=== PATIENT | male | born 1985 | race African-American/Black ===

== ENCOUNTER 2017-06-09 13:13 | Emergency (ER) | payer OTHER ==
[~2017-06-09] VITALS: Ht 208.3 cm; Wt 95.3 kg
[2017-06-09] MEDS ORDERED: METOCLOPRAMIDE HCL 10 MG/2 ML VIAL IV ONE (13:30)
[2017-06-09] MEDS ORDERED: IV NORMAL SALINE 1000 ML BAG IV ONE (13:30)
[2017-06-09] MEDS ORDERED: METOCLOPRAMIDE HCL 10 MG/2 ML VIAL ONE (13:33)
[2017-06-09] MEDS ORDERED: PROCHLORPERAZINE EDISYLATE 10 MG/2 ML VIAL IV ONE (14:30)
[2017-06-09] MEDS ORDERED: diphenhydrAMINE 50 MG/1 ML VIAL IV ONE (14:30)
[2017-06-09 14:36] LABS: BASOPHILS # (AUTO) 0.1 K/uL (0.0-8.0); BASOPHILS % (AUTO) 0.5 % (0.0-2.0); EOSINOPHILS % (AUTO) 0.1 % (0.0-7.0); HEMATOCRIT 46.3 % (36.7-47.1); HEMOGLOBIN 15.4 g/dL (12.5-16.3); LYMPHOCYTES # (AUTO) 1.1 K/uL (20.0-40.0); LYMPHOCYTES % (AUTO) 9.7 % (20.5-51.5); MEAN CORPUSCULAR HEMOGLOBIN 28.6 uug (23.8-33.4); MEAN CORPUSCULAR HGB CONC 33 g/dL (32.5-36.3); MEAN CORPUSCULAR VOLUME 85.8 fL (73.0-96.2); MONOCYTES # (AUTO) 0.5 K/uL (2.0-10.0); MONOCYTES % (AUTO) 4.1 % (0.0-11.0); NEUTROPHILS # (AUTO) 10.2 K/uL (1.8-8.9); NEUTROPHILS % (AUTO) 85.6 % (38.5-71.5); PLATELET COUNT (AUTO) 239 K/uL (152-348); RED BLOOD CELL COUNT(AUTO) 5.39 MIL/uL (4.06-5.63); WHITE BLOOD COUNT (AUTO) 11.9 K/uL (3.6-10.2)
[2017-06-09] MEDS ORDERED: diphenhydrAMINE 50 MG/1 ML VIAL ONE (14:42)
[2017-06-09] MEDS ORDERED: PROCHLORPERAZINE EDISYLATE 10 MG/2 ML VIAL ONE (14:42)
[2017-06-09 15:02] LABS: POTASSIUM 3.9 mmol/L (3.5-5.1)
[2017-06-09 15:07] LABS: ETHANOL < 3 MG/DL (0-0)
[2017-06-09 15:16] LABS: BILIRUBIN,DIRECT 0.1 mg/dL (0.0-0.2); BILIRUBIN,TOTAL 0.5 mg/dL (0.2-1.0); TOTAL PROTEIN, SERUM 8.1 g/dL (6.4-8.2)
--- NOTE | 2017-06-09 16:00 | NUR ---
PT DECIDED TO GO HOME. PT AXOX4. PT SAYS RATHER GO HOME AND REST AT HOME. PT GIRL FRIEND AT BEDSIDE AND SAYS FEELS SAFE TO TAKE THE PT HOME.
--- NOTE | 2017-06-09 16:38 | NUR ---
Patient discharged to home in stable conditon. Written and verbal after care instructions given. Patient AND THE GIRL FRIEND verbalize understanding of instructions.PT WALKS IN STEADY GAIT. PT SAYS FEELS BETTER, KSENIA NIETO N/V AT THIS TIME.
[2017-06-09 16:40] VITALS: BP 121/81
== END 2017-06-09 16:42 | disposition home or self-care (01) ==
LOC: ER 13:15
DX: R10.33 Periumbilical pain (principal); Z88.0 Allergy status to penicillin
CPT/HCPCS: 36415; 70030-TC; 71045; 83605; 83690; 85025; 85730; 87040; 93005; A4663; G0480; J0780; J1200; J2765; J7030

== ENCOUNTER 2017-09-02 09:05 | Emergency (ER) | payer OTHER ==
[~2017-09-02] VITALS: Ht 208.3 cm; Wt 101.2 kg
[2017-09-02] MEDS ORDERED: IV NORMAL SALINE 1000 ML BAG IV ONE (09:30)
[2017-09-02 09:44] LABS: BASOPHILS # (AUTO) 0.1 K/uL (0.0-8.0); BASOPHILS % (AUTO) 0.4 % (0.0-2.0); HEMATOCRIT 44.4 % (36.7-47.1); HEMOGLOBIN 15.1 g/dL (12.5-16.3); LYMPHOCYTES # (AUTO) 1.6 K/uL (20.0-40.0); MEAN CORPUSCULAR HEMOGLOBIN 29.1 uug (23.8-33.4); MEAN CORPUSCULAR HGB CONC 34 g/dL (32.5-36.3); MEAN CORPUSCULAR VOLUME 85.6 fL (73.0-96.2); MONOCYTES # (AUTO) 0.8 K/uL (2.0-10.0); NEUTROPHILS # (AUTO) 8.9 K/uL (1.8-8.9); NEUTROPHILS % (AUTO) 78.6 % (38.5-71.5); PLATELET COUNT (AUTO) 288 K/uL (152-348); RED BLOOD CELL COUNT(AUTO) 5.19 MIL/uL (4.06-5.63); WHITE BLOOD COUNT (AUTO) 11.3 K/uL (3.6-10.2)
[2017-09-02] MEDS ORDERED: diphenhydrAMINE 50 MG/1 ML VIAL IV ONE (09:45)
[2017-09-02] MEDS ORDERED: MORPHINE SULFATE 4 MG/1 ML DISP.SYRIN IV ONE (09:45)
[2017-09-02] MEDS ORDERED: PROCHLORPERAZINE EDISYLATE 10 MG/2 ML VIAL IV ONE (09:45)
[2017-09-02] MEDS ORDERED: PROCHLORPERAZINE EDISYLATE 10 MG/2 ML VIAL ONE (09:47)
[2017-09-02] MEDS ORDERED: MORPHINE SULFATE 4 MG/1 ML DISP.SYRIN ONE (09:47)
[2017-09-02] MEDS ORDERED: diphenhydrAMINE 50 MG/1 ML VIAL ONE (09:47)
[2017-09-02 10:01] LABS: BILIRUBIN,DIRECT 0.2 mg/dL (0.0-0.2); BILIRUBIN,TOTAL 0.9 mg/dL (0.2-1.0); CREATININE 1.1 mg/dL (0.6-1.3); POTASSIUM 4.1 mmol/L (3.5-5.1); TOTAL PROTEIN, SERUM 8.3 g/dL (6.4-8.2)
--- NOTE | 2017-09-02 10:56 | NUR ---
Patient discharged to home in stable conditon. Written and verbal after care instructions given. Patient verbalizes understanding of instructions.pt walks in steady gait. pt says feels better. pt accompanied by girl friend. pt not driving.
[2017-09-02 11:00] VITALS: BP 121/69
== END 2017-09-02 11:03 | disposition home or self-care (01) ==
LOC: ER 09:05
DX: R10.13 Epigastric pain (principal); Z88.0 Allergy status to penicillin
CPT/HCPCS: 36415; 71045; 76705; 80048; 80076; 83690; 84484; 85025; 85730; 93005; 96361; 96374; 96375; 99285; A4663; J0780; J1200; J2270; J7030; 70030-TC